=== PATIENT | male | born 1990 | race Caucasian/White ===

== ENCOUNTER 2017-01-12 19:57 | Emergency (ER) | payer OTHER ==
[~2017-01-12] VITALS: Ht 167.6 cm; Wt 68.0 kg
[~2017-01-12 19:57] MED LIST: BACTRIM DS 8001 TA1 PO; CIPROFLOXACIN500 MG PO; DOXYCYCLINE HY100 M3 PO; HYDROCODONE BIT1 T11 PO; K-TAB20 MEQ PO; NORCO 325 MG-101 TAB PO; TOBRADEX 0.1%-0.5 ML OPH
== END 2017-01-12 22:01 | disposition home or self-care (01) ==
LOC: ED 19:57
DX: S46.912A Strain of unspecified muscle, fascia and tendon at shoulder and upper arm level, left arm, initial encounter (principal); S01.81XA Laceration without foreign body of other part of head, initial encounter; F17.200 Nicotine dependence, unspecified, uncomplicated; Z79.899 Other long term (current) drug therapy; V49.88XA Car occupant (driver) (passenger) injured in other specified transport accidents, initial encounter; Y93.89 Activity, other specified; Y92.413 State road as the place of occurrence of the external cause; Y99.8 Other external cause status

== ENCOUNTER 2021-07-20 04:43 | Emergency (ER) | payer SELFPAY ==
[~2021-07-20] VITALS: Ht 162.5 cm; Wt 77.1 kg
[2021-07-20] MEDS ORDERED: SILVADENE,SSD C50 GM T (05:02)
== END 2021-07-20 05:21 | disposition home or self-care (01) ==
LOC: ED 04:43
DX: T23.202A Burn of second degree of left hand, unspecified site, initial encounter (principal); T24.211A Burn of second degree of right thigh, initial encounter; X08.8XXA Exposure to other specified smoke, fire and flames, initial encounter; Y93.89 Activity, other specified; Y92.89 Other specified places as the place of occurrence of the external cause; Y99.8 Other external cause status

== ENCOUNTER 2022-04-23 01:15 | Emergency (ER) | payer SELFPAY ==
[~2022-04-23 01:15] MED LIST changes: +SILVADENE,SSD C50 GM T
== END 2022-04-23 02:00 | disposition home or self-care (01) ==
LOC: ED 01:15
DX: T50.901A Poisoning by unspecified drugs, medicaments and biological substances, accidental (unintentional), initial encounter (principal); Y92.89 Other specified places as the place of occurrence of the external cause

== ENCOUNTER 2022-08-05 03:12 | Inpatient (IN) | payer SELFPAY ==
[~2022-08-05] VITALS: Ht 165.1 cm; Wt 76.3 kg
[2022-08-05 03:21] VITALS: BP 132/78
[2022-08-05 04:24] LABS: BASO % 0.3 % (0.0-1.0); EOS # 0.4 10*3/uL (0.0-0.4); EOS % 2.5 % (1.0-4.0); HEMATOCRIT 48.3 % (42.0-52.0); LYMPH # 3.1 10*3/uL (1.3-4.4); LYMPH % 21.8 % (27.0-41.0); MEAN CORPUSCULAR HGB 29.4 pg (27.0-31.0); MEAN CORPUSCULAR HGB CONC 33.7 g/dl (33.0-37.0); MEAN PLATELET VOLUME 10.1 fl (9.6-12.3); MONO # 1.4 10*3/uL (0.1-1.0); MONO % 9.7 % (3.0-9.0); NEUT # 9.3 10*3/uL (2.3-7.9); NEUT % 65.3 % (47.0-73.0); PLATELET COUNT AUTOMATED 398 10*3/uL (130-400); RED BLOOD COUNT 5.55 10*6/uL (4.50-5.90); RED CELL DISTRI WIDTH 13.5 % (0-14.5); WHITE BLOOD COUNT 14.2 10*3/uL (4.8-10.8)
[2022-08-05 04:39] LABS: ALKALINE PHOSPHATASE 111 U/L (46-116); BUN 11 mg/dl (9-23); CHLORIDE 102 mmol/L (98-107); POTASSIUM 3.9 mmol/L (3.4-5.1); SGPT/ALT 67 U/L (10-49)
[2022-08-05 13:25] VITALS: BP 128/72
[2022-08-05 16:00] VITALS: BP 135/71
[2022-08-05 20:00] VITALS: BP 130/71
[2022-08-06] VITALS: BP 121/74
[2022-08-06 06:32] LABS: BASO % 0.3 % (0.0-1.0); EOS # 0.2 10*3/uL (0.0-0.4); EOS % 1.8 % (1.0-4.0); HEMATOCRIT 45.3 % (42.0-52.0); LYMPH # 1.7 10*3/uL (1.3-4.4); LYMPH % 12.8 % (27.0-41.0); MEAN CORPUSCULAR HGB 29.3 pg (27.0-31.0); MEAN CORPUSCULAR HGB CONC 33.3 g/dl (33.0-37.0); MEAN PLATELET VOLUME 10.7 fl (9.6-12.3); MONO # 1.2 10*3/uL (0.1-1.0); MONO % 9.2 % (3.0-9.0); NEUT % 75.4 % (47.0-73.0); PLATELET COUNT AUTOMATED 307 10*3/uL (130-400); RED BLOOD COUNT 5.15 10*6/uL (4.50-5.90); RED CELL DISTRI WIDTH 13.5 % (0-14.5); WHITE BLOOD COUNT 13.2 10*3/uL (4.8-10.8)
[2022-08-06 06:44] LABS: BUN 12 mg/dl (9-23); CHLORIDE 101 mmol/L (98-107)
[2022-08-06 08:00] VITALS: BP 112/79
[2022-08-06 12:00] VITALS: BP 133/89
[2022-08-06 16:00] VITALS: BP 100/58; BP 119/81
[2022-08-06 20:00] VITALS: BP 153/85
[2022-08-07] VITALS: BP 121/56
[2022-08-07 06:07] LABS: ALKALINE PHOSPHATASE 100 U/L (46-116); BUN 9 mg/dl (9-23); CHLORIDE 107 mmol/L (98-107); POTASSIUM 4.1 mmol/L (3.4-5.1); SGPT/ALT 70 U/L (10-49); TOTAL PROTEIN 6.7 gm/dL (6.0-8.0)
[2022-08-07 06:11] LABS: BASO % 0.5 % (0.0-1.0); EOS # 0.3 10*3/uL (0.0-0.4); EOS % 3.8 % (1.0-4.0); HEMATOCRIT 45.4 % (42.0-52.0); LYMPH # 2.1 10*3/uL (1.3-4.4); LYMPH % 26.6 % (27.0-41.0); MEAN CELL VOLUME 87.6 fl (80.0-94.0); MEAN PLATELET VOLUME 10.5 fl (9.6-12.3); MONO # 0.9 10*3/uL (0.1-1.0); MONO % 11.3 % (3.0-9.0); NEUT # 4.5 10*3/uL (2.3-7.9); NEUT % 57.3 % (47.0-73.0); PLATELET COUNT AUTOMATED 290 10*3/uL (130-400); RED BLOOD COUNT 5.18 10*6/uL (4.50-5.90); RED CELL DISTRI WIDTH 13.2 % (0-14.5); WHITE BLOOD COUNT 7.9 10*3/uL (4.8-10.8)
[2022-08-07 08:00] VITALS: BP 117/65
[2022-08-07] MEDS ORDERED: VIBRA-TAB100 MG PO (11:26)
== END 2022-08-07 12:25 | disposition home or self-care (01) | DRG 603 ==
LOC: ED 03:12 → EDHOLD 12:19 → 4E 12:19
PROVIDERS: Emergency Medicine; Student in an Organized Health Care Education/Training Program; ADMIT Student in an Organized Health Care Education/Training Program; ATTEND Student in an Organized Health Care Education/Training Program
PROC: 0X9K0ZZ Drainage of Left Hand, Open Approach (ICD-10-PCS; principal; 2022-08-05)
DX: L03.114 Cellulitis of left upper limb (principal); L02.512 Cutaneous abscess of left hand; F17.210 Nicotine dependence, cigarettes, uncomplicated; D72.829 Elevated white blood cell count, unspecified; R74.01 Elevation of levels of liver transaminase levels; R73.9 Hyperglycemia, unspecified; Z71.6 Tobacco abuse counseling

== ENCOUNTER 2025-06-02 07:15 | Emergency (ER) | payer OTHER ==
[~2025-06-02] VITALS: Ht 162.5 cm; Wt 71.7 kg
[~2025-06-02 07:15] MED LIST changes: +VIBRA-TAB100 MG PO
[2025-06-02] MEDS ORDERED: CEPHALEXIN 500 MG CAP PO ONE ×2 (08:35→09:21)
[2025-06-02] MEDS ORDERED: Lidocaine Hydrochloride 2% 5 ML SDV SC ONE (08:35)
[2025-06-02] MEDS ORDERED: CEPHALEXIN500 M1 PO (09:45)
[2025-06-02] MEDS ORDERED: VIBRAMYCIN100 MG PO (09:45)
== END 2025-06-02 09:49 | disposition home or self-care (01) ==
LOC: ED 07:15
DX: L02.511 Cutaneous abscess of right hand (principal); F17.200 Nicotine dependence, unspecified, uncomplicated

== ENCOUNTER 2025-06-09 12:03 | Inpatient (IN) | payer OTHER ==
[~2025-06-09] VITALS: Ht 162.5 cm; Wt 72.6 kg
[~2025-06-09 12:03] MED LIST changes: +CEPHALEXIN500 M1 PO; +VIBRAMYCIN100 MG PO
[2025-06-09 12:15] VITALS: BP 120/76
[2025-06-09] MEDS ORDERED: IOHEXOL 300 MG/ML 100 ML VIAL IV ONE (12:15)
[2025-06-09 12:33] LABS: BASO # 0.1 10*3/uL (0.0-0.1); BASO % 0.5 % (0.0-1.0); EOS # 0.3 10*3/uL (0.0-0.4); EOS % 2.9 % (1.0-4.0); MEAN CELL VOLUME 87.9 fl (80.0-94.0); MEAN CORPUSCULAR HGB 28.3 pg (27.0-31.0); MEAN PLATELET VOLUME 9.7 fl (9.6-12.3); MONO # 0.6 10*3/uL (0.1-1.0); MONO % 6.4 % (3.0-9.0); NEUT # 6.8 10*3/uL (2.3-7.9); NEUT % 68.0 % (47.0-73.0); NUCLEATED RED BLOOD CELL 0.0 % (0.0-0.0); NUCLEATED RED BLOOD CELL 0.0 10*3/uL (0.0-0.0); PLATELET COUNT AUTOMATED 421 10*3/uL (130-400); RED CELL DISTRI WIDTH 13.1 % (0-14.5)
[2025-06-09] MEDS ORDERED: TRANEXAMIC ACID IN NACL,ISO-OS 100 ML IV ONE (12:50)
[2025-06-09 12:52] LABS: BUN 15 mg/dl (9-23)
[2025-06-09] MEDS ORDERED: fentaNYL CITRATE/PF 50 MCG/ML SYRINGE IV ONE (13:25)
[2025-06-09 13:36] VITALS: BP 133/78
[2025-06-09 13:47] LABS: BILIRUBIN Negative (Negative); BLOOD Negative (Negative); CLARITY Clear (Clear); COLOR Yellow (Yellow); KETONE Negative (Negative); LEUKO ESTERASE Negative (Negative); NITRITE Negative (Negative); PH 5.5 (4.5-8.0); SPECIFIC GRAVITY >= 1.030 (1.001-1.030); UROBILINOGEN 0.2 E.U./dl (0.0-1.0)
[2025-06-09 13:55] LABS: URINE AMPHETAMINES Positive (1000ng/ml); URINE BARBITURATES Negative (200ng/ml); URINE BENZODIAZEPINES Negative (200ng/ml); URINE CANNABINOIDS (THC) Positive (50ng/ml); URINE COCAINE Negative (300ng/ml); URINE METHADONE Negative (300ng/ml); URINE OPIATES Negative (300ng/ml); URINE PHENCYCLIDINE Negative (25ng/ml)
[2025-06-09 14:07] LABS: BACTERIA TRACE; EPITHELIAL CELLS 0-2
[2025-06-09] MEDS ORDERED: ACETAMINOPHEN 650 MG SUPP R PRN (15:50)
[2025-06-09] MEDS ORDERED: BISACODYL 10 MG SUPP R PRN (15:50)
[2025-06-09] MEDS ORDERED: Ondansetron Hydrochloride 4 MG/2 ML VIAL IV PRN (15:50)
[2025-06-09] MEDS ORDERED: ACETAMINOPHEN 325 MG TAB PO PRN (15:50)
[2025-06-09] MEDS ORDERED: BISACODYL 5 MG TAB PO PRN (15:50)
[2025-06-09 16:47] VITALS: BP 131/70
[2025-06-09 17:04] VITALS: BP 132/82
[2025-06-09] MEDS ORDERED: Cyclobenzaprine Hydrochlorid 10 MG TAB PO ONE (18:15)
[2025-06-09] MEDS ORDERED: diazePAM 5 MG TAB PO PRN (18:15)
[2025-06-09 20:00] VITALS: BP 139/76
[2025-06-09] MEDS ORDERED: ZOLPIDEM TARTRATE 10 MG TAB PO SCH (22:00)
[2025-06-10] VITALS (10 sets, daily range): BP systolic 121–149; BP diastolic 65–86
[2025-06-10 06:40] LABS: BUN 10 mg/dl (9-23); FREE T4 1.07 ng/dl (0.89-1.76); LDL CHOLESTEROL 68 mg/dL (9-159); SGPT/ALT 21 U/L (5-49)
[2025-06-10 06:46] LABS: BASO # 0.0 10*3/uL (0.0-0.1); BASO % 0.3 % (0.0-1.0); EOS # 0.2 10*3/uL (0.0-0.4); EOS % 2.1 % (1.0-4.0); MEAN CELL VOLUME 86.8 fl (80.0-94.0); MEAN CORPUSCULAR HGB 28.0 pg (27.0-31.0); MEAN PLATELET VOLUME 9.8 fl (9.6-12.3); MONO # 1.2 10*3/uL (0.1-1.0); MONO % 12.3 % (3.0-9.0); NEUT # 6.4 10*3/uL (2.3-7.9); NEUT % 67.2 % (47.0-73.0); NUCLEATED RED BLOOD CELL 0.0 % (0.0-0.0); NUCLEATED RED BLOOD CELL 0.0 10*3/uL (0.0-0.0); PLATELET COUNT AUTOMATED 381 10*3/uL (130-400); RED CELL DISTRI WIDTH 13.3 % (0-14.5)
[2025-06-10 06:49] LABS: VITAMIN D, 25-HYDROXY 46.4 ng/mL (30-100)
[2025-06-10] MEDS ORDERED: Cholecalciferol 2,000 UNIT TABLET (50 MCG) PO SCH (10:00)
[2025-06-10] MEDS ORDERED: TRANEXAMIC ACID IN NACL,ISO-OS 100 ML IV ONE ×2 (11:54→13:00)
[2025-06-10] MEDS ORDERED: TRANEXAMIC ACID 1,000 MG IV ONE (13:00)
[2025-06-10] MEDS ORDERED: Water, Sterile 10 ML VIAL IV ONE (13:00)
[2025-06-10] MEDS ORDERED: Ropivacaine Hydrochloride 5 MG/ML 20 ML AMP IJ ONE (13:51)
[2025-06-10] MEDS ORDERED: Lactated Ringer's Solution 1,000 ML IV ONE ×2 (13:51→14:44)
[2025-06-10] MEDS ORDERED: ASPIRIN ENTERIC COATED 81 MG TAB PO SCH (18:00)
[2025-06-10] MEDS ORDERED: Midazolam Hydrochloride 2 MG/2 ML VIAL IV ONE (18:35)
[2025-06-10] MEDS ORDERED: ROCURONIUM BROMIDE 50 MG/5 ML SYRINGE IV ONE (18:35)
[2025-06-10] MEDS ORDERED: SUGAMMADEX SODIUM 200 MG/2 ML VIAL IV ONE (18:35)
[2025-06-10] MEDS ORDERED: Dexamethasone Sodium Phospha 4 MG/ML VIAL IV ONE (18:35)
[2025-06-10] MEDS ORDERED: SEVOFLURANE 250 ML BOT INH ONE (18:35)
[2025-06-10] MEDS ORDERED: Phenylephrine Hydrochloride 1 MG/10 ML SYRINGE IV ONE (18:35)
[2025-06-11] VITALS: BP 149/75
[2025-06-11 06:07] LABS: MANUAL DIFF REFLEX YES; MEAN CELL VOLUME 88.5 fl (80.0-94.0); MEAN CORPUSCULAR HGB 28.2 pg (27.0-31.0); MEAN PLATELET VOLUME 10.0 fl (9.6-12.3); NUCLEATED RED BLOOD CELL 0.0 % (0.0-0.0); NUCLEATED RED BLOOD CELL 0.0 10*3/uL (0.0-0.0); PLATELET COUNT AUTOMATED 403 10*3/uL (130-400); RED CELL DISTRI WIDTH 13.2 % (0-14.5)
[2025-06-11 06:28] LABS: BUN 11 mg/dl (9-23)
[2025-06-11 06:52] LABS: PLATELET SUFFICIENCY HIGH (NORMAL)
[2025-06-11 08:00] VITALS: BP 131/80
[2025-06-11] MEDS ORDERED: MUPIROCIN 15 GM TUBE T SCH (10:00)
[2025-06-11 12:00] VITALS: BP 130/65
[2025-06-11 16:00] VITALS: BP 160/73
[2025-06-11] MEDS ORDERED: ASPIRIN ENTERIC COATED 81 MG TAB PO SCH (18:00)
[2025-06-11 20:00] VITALS: BP 137/82
[2025-06-12] VITALS: BP 127/71
[2025-06-12 06:17] LABS: BASO # 0.0 10*3/uL (0.0-0.1); BASO % 0.3 % (0.0-1.0); EOS # 0.2 10*3/uL (0.0-0.4); EOS % 2.1 % (1.0-4.0); MEAN CELL VOLUME 89.3 fl (80.0-94.0); MEAN CORPUSCULAR HGB 28.2 pg (27.0-31.0); MEAN PLATELET VOLUME 10.4 fl (9.6-12.3); MONO # 1.1 10*3/uL (0.1-1.0); MONO % 10.7 % (3.0-9.0); NEUT # 6.2 10*3/uL (2.3-7.9); NEUT % 63.0 % (47.0-73.0); NUCLEATED RED BLOOD CELL 0.0 % (0.0-0.0); NUCLEATED RED BLOOD CELL 0.0 10*3/uL (0.0-0.0); PLATELET COUNT AUTOMATED 323 10*3/uL (130-400); RED CELL DISTRI WIDTH 13.6 % (0-14.5)
[2025-06-12 08:00] VITALS: BP 134/73
[2025-06-12 12:00] VITALS: BP 125/68
[2025-06-12 16:00] VITALS: BP 123/73
[2025-06-12 20:00] VITALS: BP 114/62
[2025-06-13] VITALS: BP 134/75
[2025-06-13 05:59] LABS: BUN 13 mg/dl (9-23)
[2025-06-13 06:04] LABS: BASO # 0.0 10*3/uL (0.0-0.1); BASO % 0.4 % (0.0-1.0); EOS # 0.3 10*3/uL (0.0-0.4); EOS % 2.8 % (1.0-4.0); MEAN CELL VOLUME 87.0 fl (80.0-94.0); MEAN CORPUSCULAR HGB 28.1 pg (27.0-31.0); MEAN PLATELET VOLUME 10.4 fl (9.6-12.3); MONO # 0.9 10*3/uL (0.1-1.0); MONO % 9.4 % (3.0-9.0); NEUT # 6.1 10*3/uL (2.3-7.9); NEUT % 65.0 % (47.0-73.0); NUCLEATED RED BLOOD CELL 0.0 % (0.0-0.0); NUCLEATED RED BLOOD CELL 0.0 10*3/uL (0.0-0.0); PLATELET COUNT AUTOMATED 325 10*3/uL (130-400); RED CELL DISTRI WIDTH 13.6 % (0-14.5)
[2025-06-13 08:00] VITALS: BP 136/63
[2025-06-13 12:00] VITALS: BP 132/64
[2025-06-13] MEDS ORDERED: Acetaminophen/Oxycodone 5 MG/325 MG TABLET PO PRN (12:15)
[2025-06-13] MEDS ORDERED: ZOLPIDEM TARTRATE 10 MG TAB PO PRN (12:15)
[2025-06-13 16:00] VITALS: BP 132/66
[2025-06-13 20:00] VITALS: BP 120/56
[2025-06-14] VITALS: BP 123/64
[2025-06-14 07:35] LABS: BASO # 0.0 10*3/uL (0.0-0.1); BASO % 0.3 % (0.0-1.0); EOS # 0.4 10*3/uL (0.0-0.4); EOS % 3.7 % (1.0-4.0); MEAN CELL VOLUME 87.3 fl (80.0-94.0); MEAN CORPUSCULAR HGB 27.9 pg (27.0-31.0); MEAN PLATELET VOLUME 10.1 fl (9.6-12.3); MONO # 1.0 10*3/uL (0.1-1.0); MONO % 8.3 % (3.0-9.0); NEUT # 8.5 10*3/uL (2.3-7.9); NEUT % 73.5 % (47.0-73.0); NUCLEATED RED BLOOD CELL 0.0 % (0.0-0.0); NUCLEATED RED BLOOD CELL 0.0 10*3/uL (0.0-0.0); PLATELET COUNT AUTOMATED 349 10*3/uL (130-400); RED CELL DISTRI WIDTH 13.2 % (0-14.5)
[2025-06-14 07:58] LABS: BUN 13 mg/dl (9-23)
[2025-06-14 08:00] VITALS: BP 128/69
[2025-06-14 12:00] VITALS: BP 126/62
[2025-06-14 16:00] VITALS: BP 135/80
[2025-06-14 20:00] VITALS: BP 125/75
[2025-06-15] VITALS: BP 126/67
[2025-06-15 06:15] LABS: BASO # 0.0 10*3/uL (0.0-0.1); BASO % 0.2 % (0.0-1.0); EOS # 0.4 10*3/uL (0.0-0.4); EOS % 2.9 % (1.0-4.0); MEAN CELL VOLUME 85.3 fl (80.0-94.0); MEAN CORPUSCULAR HGB 28.2 pg (27.0-31.0); MEAN PLATELET VOLUME 10.2 fl (9.6-12.3); MONO # 1.0 10*3/uL (0.1-1.0); MONO % 8.0 % (3.0-9.0); NEUT # 9.3 10*3/uL (2.3-7.9); NEUT % 74.0 % (47.0-73.0); NUCLEATED RED BLOOD CELL 0.0 % (0.0-0.0); NUCLEATED RED BLOOD CELL 0.0 10*3/uL (0.0-0.0); PLATELET COUNT AUTOMATED 380 10*3/uL (130-400); RED CELL DISTRI WIDTH 13.2 % (0-14.5)
[2025-06-15 06:25] LABS: BUN 14 mg/dl (9-23)
[2025-06-15 08:00] VITALS: BP 129/76
[2025-06-15 12:00] VITALS: BP 149/85
[2025-06-15 16:00] VITALS: BP 145/82
[2025-06-15 20:00] VITALS: BP 146/89
[2025-06-16] VITALS: BP 131/73
[2025-06-16 06:16] LABS: BASO # 0.0 10*3/uL (0.0-0.1); BASO % 0.3 % (0.0-1.0); EOS # 0.3 10*3/uL (0.0-0.4); EOS % 2.4 % (1.0-4.0); MEAN CELL VOLUME 86.2 fl (80.0-94.0); MEAN CORPUSCULAR HGB 28.4 pg (27.0-31.0); MEAN PLATELET VOLUME 10.1 fl (9.6-12.3); MONO # 1.0 10*3/uL (0.1-1.0); MONO % 8.0 % (3.0-9.0); NEUT # 8.8 10*3/uL (2.3-7.9); NEUT % 72.6 % (47.0-73.0); NUCLEATED RED BLOOD CELL 0.0 % (0.0-0.0); NUCLEATED RED BLOOD CELL 0.0 10*3/uL (0.0-0.0); PLATELET COUNT AUTOMATED 404 10*3/uL (130-400); RED CELL DISTRI WIDTH 13.2 % (0-14.5)
[2025-06-16 06:28] LABS: BUN 15 mg/dl (9-23)
[2025-06-16 08:00] VITALS: BP 96/67
[2025-06-16 12:00] VITALS: BP 134/67
[2025-06-16 16:00] VITALS: BP 123/71
[2025-06-16 20:00] VITALS: BP 133/78
[2025-06-17] VITALS: BP 128/75
[2025-06-17 08:00] VITALS: BP 118/62
[2025-06-17 12:00] VITALS: BP 130/71
[2025-06-17] MEDS ORDERED: Bactroban Oint22 GM T (12:14)
[2025-06-17] MEDS ORDERED: VITAMIN D350 MCG PO (12:14)
[2025-06-17] MEDS ORDERED: ASPIRIN ADULT L81 M2 PO (12:14)
[2025-06-17] MEDS ORDERED: OXYCODONE-ACET1 EAC3 PO (12:14)
== END 2025-06-17 21:18 | DRG 481 ==
LOC: ED 12:03 → 5E 14:37 → EDHOLD 14:37 → 5E 16:22
PROVIDERS: Internal Medicine; Student in an Organized Health Care Education/Training Program; ADMIT Internal Medicine; ATTEND Internal Medicine
PROC: 0QHB06Z Insertion of Intramedullary Internal Fixation Device into Right Lower Femur, Open Approach (ICD-10-PCS; principal; 2025-06-10)
PROC: 3E0T3BZ Introduction of Anesthetic Agent into Peripheral Nerves and Plexi, Percutaneous Approach (ICD-10-PCS; 2025-06-10)
DX: S72.331A Displaced oblique fracture of shaft of right femur, initial encounter for closed fracture (principal); E87.1 Hypo-osmolality and hyponatremia; L02.413 Cutaneous abscess of right upper limb; F19.10 Other psychoactive substance abuse, uncomplicated; R16.0 Hepatomegaly, not elsewhere classified; R73.9 Hyperglycemia, unspecified; F17.210 Nicotine dependence, cigarettes, uncomplicated; D75.839 Thrombocytosis, unspecified; R00.1 Bradycardia, unspecified; S61.401A Unspecified open wound of right hand, initial encounter; S61.401D Unspecified open wound of right hand, subsequent encounter; Q63.2 Ectopic kidney; Z79.899 Other long term (current) drug therapy; Z71.6 Tobacco abuse counseling; Z79.01 Long term (current) use of anticoagulants; Z79.2 Long term (current) use of antibiotics; W18.39XA Other fall on same level, initial encounter; X58.XXXD Exposure to other specified factors, subsequent encounter; Y93.89 Activity, other specified; Y92.89 Other specified places as the place of occurrence of the external cause; Y99.8 Other external cause status

== ENCOUNTER → 2025-06-23 | Outpatient (CLI) | payer OTHER ==
[~2025-06-23] MED LIST changes: +ASPIRIN ADULT L81 M2 PO; +Bactroban Oint22 GM T; +OXYCODONE-ACET1 EAC3 PO; +VITAMIN D350 MCG PO
== END | disposition home or self-care (01) ==
LOC: ORTHO 08:30
PROVIDERS: ATTEND Orthopaedic Surgery
DX: S72.331D Displaced oblique fracture of shaft of right femur, subsequent encounter for closed fracture with routine healing (principal); X58.XXXD Exposure to other specified factors, subsequent encounter

== ENCOUNTER → 2025-06-30 | Outpatient (CLI) | payer OTHER | END | disposition home or self-care (01) | LOC: ORTHO 02:12 | PROVIDERS: ATTEND Orthopaedic Surgery | DX: S72.331D Displaced oblique fracture of shaft of right femur, subsequent encounter for closed fracture with routine healing (principal); X58.XXXD Exposure to other specified factors, subsequent encounter ==

== ENCOUNTER → 2025-07-21 | Outpatient (CLI) | payer OTHER | END | disposition home or self-care (01) | LOC: ORTHO 05:04 | PROVIDERS: ATTEND Orthopaedic Surgery | DX: S72.331D Displaced oblique fracture of shaft of right femur, subsequent encounter for closed fracture with routine healing (principal); R22.41 Localized swelling, mass and lump, right lower limb; X58.XXXD Exposure to other specified factors, subsequent encounter ==